=== PATIENT | male | born 1985 | race Caucasian/White ===

== ENCOUNTER → 2016-09-28 | Outpatient (CLI) | payer OTHER ==
[~2016-09-28] MED LIST: LEVO25TA4 PO; VIST50CA PO; WELLTAB39 PO
[2016-09-28 13:17] LABS: FREE T3 2.85 PG/ML (2.18-3.98); FREE T4 0.86 NG/DL (0.76-1.46)
== END ==
LOC: CLAB 12:26
PROVIDERS: ATTEND Nurse Practitioner Family
DX: R79.89 Other specified abnormal findings of blood chemistry (principal)
CPT/HCPCS: 36415; 84439; 84443; 84481